=== PATIENT | female | born 1975 | race Caucasian/White ===

== ENCOUNTER 2017-06-28 20:57 | Emergency (ER) | payer OTHER ==
[2017-06-28 21:39] LABS: Bicarbonate 27 mEq/L (21-31); Glucose Level 310 mg/dL (65-120); Potassium 4.2 mEq/L (3.6-5.0); Sodium Level 134 mEq/L (135-145)
[2017-06-28] MEDS ORDERED: NA CHLORIDE 0.9% 1,000 ML ONE (21:39)
[2017-06-28 21:42] LABS: Absolute Lymphocytes (CBC) 6.3 K/uL (0.7-4.9); Absolute Monocytes 0.7 K/uL (0.1-1.3); Absolute Neutrophil 7.7 K/uL (1.8-8.0); Basophils % 0.7 % (0-1.3); Eosinophils % 3.2 % (0-4.4); Hematocrit 43.7 % (36.0-45.0); Lymphocytes % 41.4 % (15.3-44.8); MCH 27.9 pg (27.0-35.0); MCV 83.9 fL (80-100); Monocytes % 4.4 % (3.3-12.3)
[2017-06-28 21:45] LABS: ALT/SGPT 35 IU/L (10-60); AST/SGOT 34 IU/L (10-42); Albumin 4.1 g/dL (3.2-5.5); Alkaline Phosphatase 68 IU/L (42-121); BUN Blood Urea Nitrogen 9 mg/dL (6-20); Bilirubin Direct 0.1 mg/dL (0-0.2); Bilirubin Total 0.5 mg/dL (0.3-1.2); Glomerular Filtration Rate 77 mL/min (=/>90); Protein, Total 7.8 g/dL (6.0-8.3); Protime INR 1.01
[2017-06-28 21:46] LABS: Alcohol Serum/Plasma < 10 mg/dl; Salicylates Level < 4.0 mg/dl (<30)
[2017-06-29 00:56] LABS: Barbiturates NEGATIVE; Benzodiazepines POSITIVE; Cocaine NEGATIVE; METHAMPHETAM NEGATIVE; Opiates POSITIVE; Phencyclidine NEGATIVE; THC Cannibis NEGATIVE
[2017-06-29 01:12] LABS: Urine Blood NEGATIVE (NEG); Urine Glucose TRACE (NEG); Urine Protein NEGATIVE (NEG); Urine Specific Gravity 1.025 (1.005-1.030); Urine pH 5.5 (5.0-7.0)
--- NOTE | 2017-06-29 01:12 | EDPHYS ---
Physician Documentation [facility] Name: Mireya Gonsalez Age: 42 yrs Sex: Female : 1975 Arrival Date: 06/28/2017 Time: 20:59 Bed 3 Private MD: ED Physician Ricky Miles HPI: 06/28 21:15 This 42 yrs old Female presents to ER via EMS with complaints of Overdose. cp 21:15 The patient presents to the emergency department after a known overdose, that was cp intentional. 21:15 Context: Method: the patient has a confirmed or suspected ingestion, approximately 8 cp tablets of tylenol #3 pain medication, Time: 45 minute(s) ago, the OD/poisoning occurred at at home, patient reports she became upset with . Denies taking medication in attempt to kill herself. Also, reports taking 1 tablet of 1mg Xanax. 21:15 Associated signs and symptoms: Pertinent negatives: auditory hallucinations, decreased cp level of consciousness, diaphoresis, shortness of breath, visual hallucinations. Historical: - Allergies: 21:09 No Known Allergies; lp1 - Home Meds: 21:09 levothyroxine 88 mcg tab 1 tab once daily [Active]; metformin 500 mg Oral tab 1 tab 2 lp1 times per day [Active]; gabapentin oral oral [Active]; - PMHx: 21:09 Diabetes - NIDDM; Hypothyroidism; lp1 - PSHx: 21:09 Cholecystectomy; D \T\ C; Hernia repair; Shoulder surgery; lp1 - Immunization history:: Adult Immunizations up to date. - Social history:: Smoking status: Patient/guardian denies using tobacco. ROS: 21:18 Constitutional: Negative for body aches, chills, fever, poor PO intake. cp 21:18 Eyes: Negative for injury, pain, redness, and discharge. cp 21:18 ENT: Negative for drainage from ear(s), ear pain, sore throat, difficulty swallowing, difficulty handling secretions. 21:18 Cardiovascular: Negative for chest pain, edema, palpitations. 21:18 Respiratory: Negative for cough, shortness of breath, wheezing. 21:18 Abdomen/GI: Negative for abdominal pain, nausea, vomiting, and diarrhea, black/tarry stool, rectal bleeding. 21:18 Back: Negative for radiated pain. 21:18 Skin: Negative for cellulitis, rash. 21:18 Neuro: Negative for altered mental status, headache, loss of consciousness, weakness. 21:18 Psych: Positive for depression, Negative for auditory hallucinations, visual hallucinations, suicide gesture, suicidal ideation. 21:18 All other systems are negative. Exam: 21:10 ECG was reviewed by the Attending Physician. cp 21:22 Constitutional: The patient appears in no acute distress, alert, awake, cp non-diaphoretic, non-toxic, well developed, well nourished, obese. 21:22 Head/Face: Normocephalic, atraumatic. Eyes: Pupils equal round and reactive to light, cp extra-ocular motions intact. Lids and lashes normal. Conjunctiva and sclera are non-icteric and not injected. Cornea within normal limits. Periorbital areas with no swelling, redness, or edema. ENT: Nares patent. No nasal discharge, no septal abnormalities noted. Tympanic membranes are normal and external auditory canals are clear. Oropharynx with no redness, swelling, or masses, exudates, or evidence of obstruction, uvula midline. Mucous membranes moist. Neck: Trachea midline, no thyromegaly or masses palpated, and no cervical lymphadenopathy. Supple, full range of motion without nuchal rigidity, or vertebral point tenderness. No Meningismus. Chest/axilla: Normal chest wall appearance and motion. Nontender with no deformity. No lesions are appreciated. 21:22 Cardiovascular: Rate: tachycardic, Rhythm: regular, Pulses: Pulses are 2+ in right radial artery and left radial artery. Edema: is not appreciated, JVD: is not appreciated. 21:22 Respiratory: the patient does not display signs of respiratory distress, Respirations: normal, no use of accessory muscles, no retractions, no splinting, no tachypnea, labored breathing, is not present, Breath sounds: are clear throughout, no decreased breath sounds, no stridor, no wheezing. 21:22 Abdomen/GI: Inspection: obese Bowel sounds: active, all quadrants, Palpation: abdomen is soft and non-tender, in all quadrants, rebound tenderness, is not appreciated, voluntary guarding, is not appreciated, involuntary guarding, is not appreciated. 21:22 Back: pain, is absent, ROM is normal. 21:22 Skin: cellulitis, is not appreciated, no rash present. 21:22 Neuro: Orientation: to person, place \T\ time. Mentation: able to follow commands, sleepy, Cerebellar function: is grossly normal, Motor: moves all fours, strength is normal, Sensation: no obvious gross deficits. Vital Signs: 21:09 BP 117 / 88; Pulse 113; Resp 16; Temp 98.1(O); Pulse Ox 95% on R/A; Weight 115.21 kg; lp1 Height 5 ft. 5 in. (165.10 cm); 22:03 BP 114 / 84; Pulse 90; Resp 12; Pulse Ox 96% on 2 lpm NC; tl2 06/29 00:42 BP 127 / 91; Pulse 80; Resp 13; Pulse Ox 95% on R/A; tl2 06/28 21:09 Body Mass Index 42.27 (115.21 kg, 165.10 cm) lp1 MDM: 06/28 21:02 Patient medically screened. cp 22:00 Differential diagnosis: polypharmacy, over medication, suicide gesture, suicidal cp ideation, depression. 06/29 01:10 Data reviewed: vital signs, nurses notes, lab test result(s), VSS. Repeat 4 hr tylenol cp level returned and lower decreased. Patient evaluated by [facility] and felt to be stable for discharge. Will discharge to home for continued monitoring. 06/28 21:11 Order name: Acetaminophen cp 06/28 21:11 Order name: Basic Metabolic Panel cp 06/28 21:11 Order name: CBC with Diff cp 06/28 21:11 Order name: ETOH Level cp 06/28 21:11 Order name: Hepatic Function cp 06/28 21:11 Order name: PT-INR cp 06/28 21:11 Order name: Ptt, Activated cp 06/28 21:11 Order name: Salicylate cp 06/28 21:11 Order name: Urine Drug Screen cp 06/28 21:40 Order name: Basic Metabolic Panel; Complete Time: 23:21 EDMS 06/29 01:09 Interpretation: Normal except: NA 134; CL 98; GLUC 310; GFR 77. cp 06/28 21:46 Order name: Liver (Hepatic) Function; Complete Time: 23:21 EDMS 06/28 21:46 Order name: Acetaminophen Level; Complete Time: 23:21 EDMS 06/28 21:46 Order name: Alcohol Serum/Plasma; Complete Time: 23:21 EDMS 06/28 21:46 Order name: Salicylates Level; Complete Time: 23:21 EDMS 06/28 21:11 Order name: Urine Test (obtain specimen); Complete Time: 00:33 cp 06/28 21:11 Order name: EKG; Complete Time: 21:13 cp 06/28 21:11 Order name: EKG - Nurse/Tech; Complete Time: 21:17 cp 06/28 21:11 Order name: IV Saline Lock; Complete Time: 21:17 cp 06/28 21:55 Order name: CBC with Automated Diff; Complete Time: 23:21 EDMS 06/28 21:56 Order name: Protime (+INR); Complete Time: 23:21 EDMS 06/28 21:56 Order name: PTT, Activated Partial Thromb; Complete Time: 23:21 EDME 06/29 00:16 Order name: Tylenol Level: repeat 0045 cp 06/29 00:42 Order name: Acetaminophen Level; Complete Time: 01:07 EDME 06/29 00:42 Order name: Urine Dipstick--Ancillary (enter results) em1 06/29 00:42 Order name: Urine --Ancillary (enter results) em1 06/29 00:56 Order name: Urine Drug Screen; Complete Time: 01:07 EDME 06/29 01:07 Interpretation: Normal except: BZO POSITIVE; OPI POSITIVE. cp 06/29 01:12 Order name: Urine --Ancillary EDME 06/29 01:12 Order name: Urine Dipstick-Ancillary EDME 06/28 21:11 Order name: Labs collected and sent; Complete Time: 21:17 cp 06/28 21:11 Order name: Urine Dipstick-Ancillary (obtain specimen); Complete Time: 00:33 cp EC/23 21:10 Rate is 113 beats/min. Rhythm is regular. IA interval is normal. QRS interval is cp normal. QT interval is normal. T waves are Inverted in lead III. T waves are Flattened in leads V4, V5, V6. Interpreted by me. Reviewed by me. Administered Medications: 21:18 CANCELLED (Physician Discretion): Charcoal Suspension 50 grams PO once cp 21:22 Drug: NS 0.9% 1000 ml Route: IV; Rate: 1 bolus; Site: right antecubital; tl2 06/29 01:42 Follow up: IV Status: Completed infusion tl2 Disposition: 06/29/17 01:12 Discharged to Home. Impression: Patient's other noncompliance with medication regimen - Overdose, Diabetes mellitus due to underlying condition with hyperglycemia, Depression. - Condition is Stable. - Discharge Instructions: Depression, Adult, Narcotic Overdose, Blood Glucose Monitoring, Adult. - Medication Reconciliation Form, Thank You Letter, Antibiotic Education, Prescription Opioid Use form. - Follow up: Private Physician; When: 1 - 2 days; Reason: Recheck today's complaints. - Problem is new. - Symptoms have improved. Addendum: 07/02/2017 07:08 Co-signature as Attending Physician, Ricky Miles MD I agree with the assessment and w a plan of care. Signatures: Dispatcher [employer] EDMS Mireya Valadez RN RN lp1 Patrice Field PA PA cp Knox, Taylor, RN RN tl2 Ricky Miles MD MD sc Corrections: (The following items were deleted from the chart) 06/28 21:18 21:15 Charcoal Suspension 50 grams PO once ordered. cp cp
--- NOTE | 2017-06-29 01:12 | ER ---
Nurse's Notes [facility] Name: Mireya Gonsalez Age: 42 yrs Sex: Female : 1975 Arrival Date: 06/28/2017 Time: 20:59 Bed 3 Private MD: Diagnosis: Patient's other noncompliance with medication regimen-Overdose;Diabetes mellitus due to underlying condition with hyperglycemia;Depression Presentation: 06/28 21:05 Presenting complaint: EMS states: Called by , states patient taking tylenol #3 lp1 x7, Xanax x1, about 35 min ago; After having argument with ; Denies attempt to harm self or others; States just wanting to sleep. Transition of care: patient was not received from another setting of care. Onset of symptoms was June 28, 2017 at 20:30. Care prior to arrival: IV initiated. 20 GA, in the right antecubital area, Glucose check: 146. 21:05 Method Of Arrival: EMS: [facility] lp1 21:05 Acuity: ARMIN 2 lp1 Triage Assessment: 21:12 General: Appears in no apparent distress. uncomfortable, Behavior is cooperative, tl2 appropriate for age, drowsy. Pain: Denies pain. Neuro: Level of Consciousness is obeys commands, stuporous, Oriented to person, place, time. Cardiovascular: Denies chest pain. Respiratory: Airway is patent Respiratory effort is even, unlabored, Respiratory pattern is regular, symmetrical. GI: No signs and/or symptoms were reported involving the gastrointestinal system. : No signs and/or symptoms were reported regarding the genitourinary system. Derm: Skin is pink, warm \T\ dry. Historical: - Allergies: 21:09 No Known Allergies; lp1 - Home Meds: 21:09 levothyroxine 88 mcg tab 1 tab once daily [Active]; metformin 500 mg Oral tab 1 tab 2 lp1 times per day [Active]; gabapentin oral oral [Active]; - PMHx: 21:09 Diabetes - NIDDM; Hypothyroidism; lp1 - PSHx: 21:09 Cholecystectomy; D \T\ C; Hernia repair; Shoulder surgery; lp1 - Immunization history:: Adult Immunizations up to date. - Social history:: Smoking status: Patient/guardian denies using tobacco. Screenin:10 Nutritional screening: No deficits noted. Tuberculosis screening: No symptoms or risk lp1 factors identified. 21:12 Abuse screen: Denies threats or abuse. Fall Risk Gait- Impaired (20 pts.). tl2 Assessment: 21:15 General: see triage assessment. Pt denies suicidal ideations, states she just wants to tl2 sleep.. 21:18 General: Mookie Palomino with [facility] contacted at [phone]. 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 it is recommended for a 4 hour post ingestion tylenol level be drawn. airway support recommended as needed. ERP notified of poison center recommendations. . 21:22 Reassessment: Pt O2 saturation dropped to 88% while sleeping, placed on 2 L O\T\ per nc, tl2 O2 increased to 93%. 22:05 Reassessment: Pt is sleeping, VSS. Family at bedside. tl2 06/29 00:42 Reassessment: Patient appears in no apparent distress at this time. Patient and/or tl2 family updated on plan of care and expected duration. Pain level reassessed. Patient is alert, oriented x 3, equal unlabored respirations, skin warm/dry/pink. pt is more awake and alert. Awaiting results of repeat tylenol level. if negative pt will be discharged. 01:38 Reassessment: Patient appears in no apparent distress at this time. Patient and/or tl2 family updated on plan of care and expected duration. Pain level reassessed. Patient is alert, oriented x 3, equal unlabored respirations, skin warm/dry/pink. pt verbalized understanding of discharge instructions, need for follow up with mental health Patient states feeling better. Overdose: 06/28 21:14 Patient took Tylenol #3 x7 and xanax x1. Overdose occurred 30 minutes to 1 hour ago. tl2 Vital Signs: 21:09 BP 117 / 88; Pulse 113; Resp 16; Temp 98.1(O); Pulse Ox 95% on R/A; Weight 115.21 kg; lp1 Height 5 ft. 5 in. (165.10 cm); 22:03 BP 114 / 84; Pulse 90; Resp 12; Pulse Ox 96% on 2 lpm NC; tl2 06/29 00:42 BP 127 / 91; Pulse 80; Resp 13; Pulse Ox 95% on R/A; tl2 06/28 21:09 Body Mass Index 42.27 (115.21 kg, 165.10 cm) lp1 ED Course: 06/28 20:59 Patient arrived in ED. em1 21:00 Safety Checks: Personal items have been removed The door is open or patient has been tl2 placed in a hallway bed/chair. A family member and/or friend is present and encouraged to stay. 21:02 Patrice Field PA is PHCP. cp 21:02 Ricky Miles MD is Attending Physician. cp 21:06 Triage completed. lp1 21:10 Patient has correct armband on for positive identification. monitor technician on. Pulse lp1 ox on. NIBP on. 21:10 Maintain EMS IV. Dressing intact. Good blood return noted. Site clean \T\ dry. Gauge \T\ lp 1 site: 20g R AC. 21:12 Arm band placed on right wrist. tl2 21:15 Safety Checks: Personal items have been removed The door is open or patient has been tl2 placed in a hallway bed/chair. A family member and/or friend is present and encouraged to stay. 21:21 Hayde Todd, ELIOT is Primary Nurse. tl2 21:30 Safety Checks: Personal items have been removed The door is open or patient has been tl2 placed in a hallway bed/chair. A family member and/or friend is present and encouraged to stay. 21:45 Safety Checks: Personal items have been removed The door is open or patient has been tl2 placed in a hallway bed/chair. A family member and/or friend is present and encouraged to stay. 22:00 Safety Checks: Personal items have been removed The door is open or patient has been tl2 placed in a hallway bed/chair. A family member and/or friend is present and encouraged to stay. 22:15 Safety Checks: Personal items have been removed The door is open or patient has been ak1 placed in a hallway bed/chair. A family member and/or friend is present and encouraged to stay. 22:30 Safety Checks: Personal items have been removed The door is open or patient has been ak1 placed in a hallway bed/chair. A family member and/or friend is present and encouraged to stay. 22:45 Safety Checks: Personal items have been removed The door is open or patient has been ak1 placed in a hallway bed/chair. A family member and/or friend is present and encouraged to stay. 23:00 Safety Checks: Personal items have been removed The door is open or patient has been ak1 placed in a hallway bed/chair. A family member and/or friend is present and encouraged to stay. 23:15 Safety Checks: Personal items have been removed The door is open or patient has been ak1 placed in a hallway bed/chair. A family member and/or friend is present and encouraged to stay. 23:30 Safety Checks: Personal items have been removed The door is open or patient has been ak1 placed in a hallway bed/chair. A family member and/or friend is present and encouraged to stay. 23:44 Safety Checks: Personal items have been removed The door is open or patient has been ak1 placed in a hallway bed/chair. A family member and/or friend is present and encouraged to stay. 06/29 00:00 Safety Checks: Personal items have been removed The door is open or patient has been tl2 placed in a hallway bed/chair. A family member and/or friend is present and encouraged to stay. 00:15 Safety Checks: Personal items have been removed The door is open or patient has been tl2 placed in a hallway bed/chair. A family member and/or friend is present and encouraged to stay. 00:30 Safety Checks: Personal items have been removed The door is open or patient has been tl2 placed in a hallway bed/chair. A family member and/or friend is present and encouraged to stay. 00:39 Tylenol Level: repeat 0045 Sent. tl2 00:44 Safety Checks: Personal items have been removed The door is open or patient has been tl2 placed in a hallway bed/chair. A family member and/or friend is present and encouraged to stay. 01:00 Safety Checks: Personal items have been removed The door is open or patient has been tl2 placed in a hallway bed/chair. A family member and/or friend is present and encouraged to stay. 01:15 Safety Checks: Personal items have been removed The door is open or patient has been tl2 placed in a hallway bed/chair. A family member and/or friend is present and encouraged to stay. 01:30 Safety Checks: Personal items have been removed The door is open or patient has been tl2 placed in a hallway bed/chair. A family member and/or friend is present and encouraged to stay. 01:38 No provider procedures requiring assistance completed. IV discontinued, intact, tl2 bleeding controlled, No redness/swelling at site. Pressure dressing applied. Administered Medications: 06/28 21:18 CANCELLED (Physician Discretion): Charcoal Suspension 50 grams PO once cp 21:22 Drug: NS 0.9% 1000 ml Route: IV; Rate: 1 bolus; Site: right antecubital; tl2 06/29 01:42 Follow up: IV Status: Completed infusion tl2 Outcome: 01:12 Discharge ordered by MD. cp 01:30 Discharged to home via wheelchair, with family. tl2 01:30 Condition: stable 01:30 Discharge instructions given to patient, family, Instructed on discharge instructions, follow up and referral plans. Demonstrated understanding of instructions, follow-up care. 01:42 Patient left the ED. tl2 Signatures: [place] em1 Mireya Valadez RN RN lp1 Christy Mackay RN RN ak1 Patrice Field PA PA Hayde Dupree, ELIOT RN tl2 Corrections: (The following items were deleted from the chart) 06/28 21:09 21:05 Care prior to arrival: None. lp1 lp1
[2017-06-29 01:46] VITALS: TEMP 98.1
[2017-06-29 01:48] VITALS: BP 127/91; O2SAT 95
--- NOTE | 2017-06-29 07:22 | EKG ---
Test Date: 2017-06-28 Test Time: 21:05:29 Gang Sawyer: LANDEN MEASUREMENT RESULTS: Intervals: Rate: 113 VA: 134 QRSD: 78 QT: 334 QTc: 458 [place]ell: P: 68 VA: 134 QRS: 51 T: -11 INTERPRETIVE STATEMENTS: Sinus tachycardia Possible Left atrial enlargement Nonspecific T wave abnormality Abnormal ECG Compared to ECG 03/16/2017 08:11:21 T-wave abnormality now present Sinus rhythm no longer present Electronically Signed On 06-29-17 07:21:40 CDT by Flaco Johnson
== END 2017-06-29 01:42 | disposition home or self-care (01) ==
LOC: ER 20:57
DX: T40.2X1A Poisoning by other opioids, accidental (unintentional), initial encounter (principal); Y92.009 Unspecified place in unspecified non-institutional (private) residence as the place of occurrence of the external cause; Z91.14 Patient's other noncompliance with medication regimen; E08.65 Diabetes mellitus due to underlying condition with hyperglycemia; E03.9 Hypothyroidism, unspecified
CPT/HCPCS: 36415; 80048; 80076; 80307; 80320; 80329; 81003; 81025; 85025; 85610; 85730; 93005; 96360; 96361; 99284; J7030

== ENCOUNTER 2017-10-01 06:36 | Day surgery (SDC) | payer OTHER ==
[2017-10-01 06:54] LABS: Specific Gravity >= 1.030 (1.005-1.030)
[2017-10-01] MEDS ORDERED: NA CHLORIDE 0.9% 1,000 ML ONE (06:57)
[2017-10-01] MEDS ORDERED: LIDOCAINE 1% MPF 5 ML VIAL ONE (08:06)
[2017-10-01] MEDS ORDERED: PROPOFOL 200 MG/20 ML VIAL IV ONE ×2 (08:06)
--- NOTE | 2017-10-01 08:33 | ENDO RPT ---
[address], [address] COLONOSCOPY PROCEDURE REPORT EXAM DATE: 10/01/2017 PATIENT NAME: Mireya Gonsalez MR #: [id number] BIRTHDATE: 1975 ATTENDING: Ricky Sorto Dr STATUS: outpatient DEER FARM WORKER: Joanna Alonzo RN and Kandice Negro INDICATIONS: The patient is a 42 yr old Female here for a colonoscopy due to family history of colon polyps - mother PROCEDURE PERFORMED: Screening Colonoscopy MEDICATIONS: Per Anesthesia. ESTIMATED BLOOD LOSS: None CONSENT: The patient understands the risks and benefits of the procedure and understands that these risks include, but are not limited to: sedation, allergic reaction, infection, perforation and/or bleeding. Alternative means of evaluation and treatment include, among others: physical exam, x-rays, and/or surgical intervention. The patient elects to proceed with this endoscopic procedure. DESCRIPTION OF PROCEDURE: During intra-op preparation period all mechanical medical equipment was checked for proper function. Hand hygiene and appropriate measures for infection prevention was taken. Procedure, possible complications, alternatives including, but not limited to possibility of bleeding, perforation, tear, infection, sepsis, need for surgery, need for blood transfusion, were explained to the patient. After the risks, benefits and alternatives of the procedure were thoroughly explained, Informed consent was verified, confirmed and timeout was successfully executed by the treatment team. The patient was placed in the left lateral position. A digital rectal exam was performed and revealed several skin tags. After appropriate level of anesthesia, the scope was passed. The EC-[id number] ([id number]) endoscope was introduced through the anus and advanced to the cecum, which was identified by both the appendix and ileocecal valve. The quality of the prep was good. The instrument was then slowly withdrawn as the colon was fully examined. Scope withdrawal time was 7 minutes. COLON FINDINGS: Moderate sized internal hemorrhoids were found. Retroflexed views revealed medium hemorrhoids. The scope was then completely withdrawn from the patient and the procedure terminated. ADVERSE EVENTS: There were no complications. IMPRESSIONS: 1. Moderate sized internal hemorrhoids 2. Intubation to cecum RECOMMENDATIONS: fiber rich diet RECALL: Colonoscopy at 51 [address] eSigned: Ricky Sorto Dr 10/01/2017 8:32 AM cc: CPT CODES: ICD9 CODES: 455.9 Residual hemorrhoidal skin tags PATIENT NAME: Mireya Gonsalez MR#: [id number]
[2017-10-01 08:38] VITALS: TEMP 98.4
[2017-10-01 08:50] VITALS: BP 110/85; O2SAT 96
== END 2017-10-01 08:53 | disposition home or self-care (01) ==
LOC: ENDO 06:36
PROVIDERS: ATTEND Internal Medicine Gastroenterology
PROC: 0DJD8ZZ Inspection of Lower Intestinal Tract, Via Natural or Artificial Opening Endoscopic (ICD-10-PCS; principal; 2017-10-01 08:45)
DX: Z12.11 Encounter for screening for malignant neoplasm of colon (principal); M19.90 Unspecified osteoarthritis, unspecified site; E11.9 Type 2 diabetes mellitus without complications; Z79.84 Long term (current) use of oral hypoglycemic drugs; F17.210 Nicotine dependence, cigarettes, uncomplicated; Z83.71 Family history of colonic polyps; R10.13 Epigastric pain; E66.9 Obesity, unspecified; L91.8 Other hypertrophic disorders of the skin; K64.8 Other hemorrhoids
CPT/HCPCS: 81025; 82962; J7030

== ENCOUNTER 2018-01-06 20:36 | Emergency (ER) | payer OTHER ==
[2018-01-06] MEDS ORDERED: HYDROCODONE/APAP 10/325 TAB ONE (22:37)
[2018-01-06] MEDS ORDERED: CYCLOBENZAPRINE 10 MG TAB ONE (22:47)
--- NOTE | 2018-01-06 22:57 | ER ---
Nurse's Notes [facility] Name: Mireya Gonsalez Age: 42 yrs Sex: Female : 1975 Arrival Date: 01/06/2018 Time: 20:40 Bed 13 Private MD: Diagnosis: Strain of muscle, fascia and tendon at neck level Presentation: 01/06 20:51 Presenting complaint: Patient states: "I woke up this morning and I can't move my neck. aj1 I have spinal stenosis. I had an injection 2 years ago, but now I'm in the same situation again" Denies fever. Transition of care: patient was not received from another setting of care. Onset of symptoms was January 06, 2018. Risk Assessment: Do you want to hurt yourself or someone else? Patient reports no desire to harm self or others. Initial Sepsis Screen: Does the patient meet any 2 criteria? HR > 90 bpm. No. Patient's initial sepsis screen is negative. Does the patient have a suspected source of infection? No. Patient's initial sepsis screen is negative. Care prior to arrival: None. 20:51 Method Of Arrival: Ambulatory [facility] 20:51 Acuity: ARMIN 4 aj1 Triage Assessment: 20:55 General: Appears in no apparent distress. uncomfortable, Behavior is calm, cooperative, aj1 appropriate for age. Pain: Complains of pain in neck Pain currently is 8 out of 10 on a pain scale. Neuro: Level of Consciousness is awake, alert, obeys commands, Moves all extremities. Full function Gait is steady, Speech is normal. Cardiovascular: Patient's skin is warm and dry. Respiratory: Airway is patent Respiratory effort is even, unlabored, Respiratory pattern is regular, symmetrical. 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 - Social history:: Smoking status: Patient uses tobacco products, smokes one pack cigarettes per day. - Ebola Screening: : Patient denies travel to an Ebola-affected area in the 21 days before illness onset. Screenin:30 Abuse screen: Denies threats or abuse. Denies injuries from another. Nutritional aa1 screening: No deficits noted. Tuberculosis screening: No symptoms or risk factors identified. Fall Risk None identified. Assessment: 21:30 General: Appears in no apparent distress. comfortable, Behavior is calm, cooperative, aa1 appropriate for age. Pain: Complains of pain in left side of neck Quality of pain is described as sharp, shooting. Neuro: Level of Consciousness is awake, alert, obeys commands, Oriented to person, place, time, situation, Moves all extremities. Full function Gait is steady, Speech is normal, Facial symmetry appears normal. Respiratory: Airway is patent Respiratory effort is even, unlabored, Respiratory pattern is regular, symmetrical. GI: No signs and/or symptoms were reported involving the gastrointestinal system. : No signs and/or symptoms were reported regarding the genitourinary system. EENT: No signs and/or symptoms were reported regarding the EENT system. Derm: Skin is intact, is healthy with good turgor, Skin is pink, warm \\T\\ dry. Musculoskeletal: Circulation, motion, and sensation intact. Capillary refill < 3 seconds, Range of motion: intact in all extremities. 22:10 Reassessment: Patient appears in no apparent distress at this time. Patient and/or aa1 family updated on plan of care and expected duration. Pain level reassessed. Patient is alert, oriented x 3, equal unlabored respirations, skin warm/dry/pink. Pt awaiting initial assessment from provider. 23:11 Reassessment: Patient appears in no apparent distress at this time. Patient is alert, aa1 oriented x 3, equal unlabored respirations, skin warm/dry/pink. Discussed d/c \\T\\ f/u instructions with pt; denies questions or concerns at this time Patient states feeling better. Vital Signs: 20:55 BP 116 / 86; Pulse 101; Resp 18; Temp 97.4(TE); Pulse Ox 95% on R/A; Weight 115.21 kg aj1 (R); Height 5 ft. 5 in. (165.10 cm) (R); Pain 8/10; 22:35 BP 133 / 81; Pulse 102; Resp 18; Pulse Ox 96% on R/A; aa1 20:55 Body Mass Index 42.27 (115.21 kg, 165.10 cm) aj1 ED Course: 20:40 Patient arrived in ED. ag3 20:53 Triage completed. aj1 20:55 Arm band placed on Patient placed in waiting room, Patient notified of wait time. aj1 21:30 Patient has correct armband on for positive identification. Bed in low position. Call aa1 light in reach. Pulse ox on. NIBP on. 21:45 Catalino Zazueta NP is PHCP. pm1 21:46 Deion Call MD is Attending Physician. pm1 22:34 Theresa Martinez, RN is Primary Nurse. aa1 23:11 No provider procedures requiring assistance completed. Patient did not have IV access aa1 during this emergency room visit. Administered Medications: 22:34 Drug: [place] 10 mg-325 mg 1 tabs Route: PO; aa1 23:11 Follow up: Response: No adverse reaction; Pain is decreased aa1 22:36 Not Given (Patient Refused): TORadol 60 mg IM once aa1 22:43 Drug: Flexeril 10 mg Route: PO; aa1 23:11 Follow up: Response: No adverse reaction; Pain is decreased aa1 Outcome: 22:56 Discharge ordered by MD. pm1 23:11 Discharged to home ambulatory, with significant other. aa1 23:11 Condition: good 23:11 Discharge instructions given to patient, Instructed on discharge instructions, follow up and referral plans. medication usage, Demonstrated understanding of instructions, follow-up care, medications, Prescriptions given X 2. 23:12 Patient left the ED. aa1 Signatures: Brittany Mullins RN RN aj1 Theresa Martinez RN RN aa1 Catalino Zazueta NP [employer] pm1 Annabel Salcedo ag3
--- NOTE | 2018-01-06 22:57 | EDPHYS ---
Physician Documentation [facility] Name: Mireya Gonsalez Age: 42 yrs Sex: Female : 1975 Arrival Date: 01/06/2018 Time: 20:40 Bed 13 Private MD: ED Physician Deion Call HPI: 01/06 22:48 This 42 yrs old Female presents to ER via Ambulatory with complaints of Neck pm1 Pain. 22:48 The patient or guardian complains of pain. The symptoms are located on the left side of pm1 neck. Onset: The symptoms/episode began/occurred this morning. Context: The problem was sustained at home, The neck injury/problem resulted from Unknown, possibly slept wrong on it. Has a history of chronic neck pain that has required steroid injections to neck. Associated signs and symptoms: Pertinent negatives: fever, nausea, numbness, tingling, vomiting, weakness. The pain does not radiate. Modifying factors: The symptoms are alleviated by remaining still, the symptoms are aggravated by movement. Severity of symptoms: in the emergency department the symptoms are unchanged. The patient has not recently seen a physician. 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 - Social history:: Smoking status: Patient uses tobacco products, smokes one pack cigarettes per day. - Ebola Screening: : Patient denies travel to an Ebola-affected area in the 21 days before illness onset. ROS: 22:48 Constitutional: Negative for fever, chills, and weight loss, Eyes: Negative for injury, pm1 pain, redness, and discharge, ENT: Negative for injury, pain, and discharge. 22:48 Cardiovascular: Negative for chest pain, palpitations, and edema, Respiratory: Negative for shortness of breath, cough, wheezing, and pleuritic chest pain, Abdomen/GI: Negative for abdominal pain, nausea, vomiting, diarrhea, and constipation, Back: Negative for injury and pain, MS/Extremity: Negative for injury and deformity, Skin: Negative for injury, rash, and discoloration, Neuro: Negative for headache, weakness, numbness, tingling, and seizure. 22:48 Neck: Positive for pain with movement, Negative for bony tenderness. Exam: 22:48 Constitutional: This is a well developed, well nourished patient who is awake, alert, pm1 and in no acute distress. Head/Face: Normocephalic, atraumatic. Eyes: Pupils equal round and reactive to light, extra-ocular motions intact. Lids and lashes normal. Conjunctiva and sclera are non-icteric and not injected. Cornea within normal limits. Periorbital areas with no swelling, redness, or edema. ENT: Nares patent. No nasal discharge, no septal abnormalities noted. Tympanic membranes are normal and external auditory canals are clear. Oropharynx with no redness, swelling, or masses, exudates, or evidence of obstruction, uvula midline. Mucous membranes moist. 22:48 Chest/axilla: Normal chest wall appearance and motion. Nontender with no deformity. No lesions are appreciated. Cardiovascular: Regular rate and rhythm with a normal S1 and S2. No gallops, murmurs, or rubs. Normal PMI, no JVD. No pulse deficits. Respiratory: Lungs have equal breath sounds bilaterally, clear to auscultation and percussion. No rales, rhonchi or wheezes noted. No increased work of breathing, no retractions or nasal flaring. Abdomen/GI: Soft, non-tender, with normal bowel sounds. No distension or tympany. No guarding or rebound. No evidence of tenderness throughout. Back: No spinal tenderness. No costovertebral tenderness. Full range of motion. Skin: Warm, dry with normal turgor. Normal color with no rashes, no lesions, and no evidence of cellulitis. MS/ Extremity: Pulses equal, no cyanosis. Neurovascular intact. Full, normal range of motion. 22:48 Neck: External neck: mass, is not appreciated, rash, is not appreciated, swelling, is not appreciated, tenderness, left sternocleidomastoid muscle tenderness and spasm with palpation that reproduces patient pain symptoms, C-spine: vertebral tenderness, is not appreciated, Trachea: is midline with no obvious abnormalities, no acute changes, Lymph nodes: no appreciated lymphadenopathy. 22:48 Neuro: Orientation: is normal, Motor: is normal, Sensation: is normal, no obvious gross deficits, Gait: is steady, at a normal pace, without difficulty. Vital Signs: 20:55 BP 116 / 86; Pulse 101; Resp 18; Temp 97.4(TE); Pulse Ox 95% on R/A; Weight 115.21 kg aj1 (R); Height 5 ft. 5 in. (165.10 cm) (R); Pain 8/10; 22:35 BP 133 / 81; Pulse 102; Resp 18; Pulse Ox 96% on R/A; aa1 20:55 Body Mass Index 42.27 (115.21 kg, 165.10 cm) aj1 MDM: 22:18 Patient medically screened. pm1 22:53 Data reviewed: vital signs. Data interpreted: Pulse oximetry: on room air is 96 %. pm1 Interpretation: normal. Counseling: I had a detailed discussion with the patient and/or guardian regarding: the historical points, exam findings, and any diagnostic results supporting the discharge/admit diagnosis, the need for outpatient follow up, to return to the emergency department if symptoms worsen or persist or if there are any questions or concerns that arise at home. 22:53 ED course: patient reports that she has Tylenol #4 at home for pain. pm1 Administered Medications: 22:34 Drug: [place] 10 mg-325 mg 1 tabs Route: PO; aa1 23:11 Follow up: Response: No adverse reaction; Pain is decreased aa1 22:36 Not Given (Patient Refused): TORadol 60 mg IM once aa1 22:43 Drug: Flexeril 10 mg Route: PO; aa1 23:11 Follow up: Response: No adverse reaction; Pain is decreased aa1 Disposition: 23:13 Co-signature as Attending Physician, Deion Call MD. pkl Disposition: 01/06/18 22:56 Discharged to Home. Impression: Strain of muscle, fascia and tendon at neck level. - Condition is Stable. - Discharge Instructions: Muscle Strain. - Prescriptions for Cyclobenzaprine 10 mg Oral Tablet - take 1 tablet by ORAL route every 8 hours As needed; 30 tablet. Naprosyn 500 mg Oral Tablet - take 1 tablet by ORAL route 2 times per day take with food; 30 tablet. - Work release form, Medication Reconciliation Form, Thank You Letter, Prescription Opioid Use form. - Follow up: Emergency Department; When: As needed; Reason: Worsening of condition. Follow up: Private Physician; When: 2 - 3 days; Reason: Recheck today's complaints, Continuance of care, Re-evaluation by your physician. - Problem is new. - Symptoms have improved. Signatures: Brittany Mullins RN RN aj1 Theresa Martinez RN RN aa1 Deion Call MD MD pkl Catalino Zazueta, [employer]UT[employer] ENGINEER pm1 Corrections: (The following items were deleted from the chart) 23:12 22:56 01/06/2018 22:56 Discharged to Home. Impression: Strain of muscle, fascia and aa1 tendon at neck level. Condition is Stable. Forms are Medication Reconciliation Form, Thank You Letter, Antibiotic Education, Prescription Opioid Use. Follow up: Emergency Department; When: As needed; Reason: Worsening of condition. Follow up: Private Physician; When: 2 - 3 days; Reason: Recheck today's complaints, Continuance of care, Re-evaluation by your physician. Problem is new. Symptoms have improved. pm1
[2018-01-07 01:24] VITALS: TEMP 97.4
[2018-01-07 01:26] VITALS: BP 133/81; O2SAT 96
== END 2018-01-06 23:12 | disposition home or self-care (01) ==
LOC: ER 20:36
DX: S16.1XXA Strain of muscle, fascia and tendon at neck level, initial encounter (principal); X58.XXXA Exposure to other specified factors, initial encounter; Y93.9 Activity, unspecified; Y92.009 Unspecified place in unspecified non-institutional (private) residence as the place of occurrence of the external cause; Z79.4 Long term (current) use of insulin; I10 Essential (primary) hypertension; E11.9 Type 2 diabetes mellitus without complications; F17.210 Nicotine dependence, cigarettes, uncomplicated
CPT/HCPCS: 99283

== ENCOUNTER 2018-07-07 07:39 | Emergency (ER) | payer OTHER ==
--- NOTE | 2018-07-07 08:16 | ER ---
Nurse's Notes [facility] Name: Mireya Gonsalez Age: 43 yrs Sex: Female : 1975 Arrival Date: 07/07/2018 Time: 07:44 Bed 6 Private MD: Ricky Manley E Diagnosis: Cough Presentation: 07/07 07:52 Presenting complaint: Patient states: dry, hacking, painful cough that began 2 days ss ago. Denies fever. Transition of care: patient was not received from another setting of care. Resp Distress? No respiratory distress is noted at this time. Onset of symptoms was July 05, 2018. Risk Assessment: Do you want to hurt yourself or someone else? Patient reports no desire to harm self or others. Initial Sepsis Screen: Does the patient meet any 2 criteria? HR > 90 bpm. Does the patient have a suspected source of infection? No. Patient's initial sepsis screen is negative. Care prior to arrival: None. 07:52 Method Of Arrival: Ambulatory ss 07:52 Acuity: ARMIN 4 ss Historical: - Allergies: 07:54 No Known Allergies; ss - PMHx: 07:54 Diabetes - NIDDM; Hypothyroidism; chronic back pain; SVT; ss - PSHx: 07:54 Cholecystectomy; Hernia repair; incision and drainage (R axilla); L shoulder repair; ss - Immunization history:: Adult Immunizations up to date. - Social history:: Smoking status: Patient uses tobacco products, smokes one pack cigarettes per day. - Ebola Screening: : Patient denies exposure to infectious person Patient denies travel to an Ebola-affected area in the 21 days before illness onset. Assessment: 08:16 Reassessment: Pt stated "I am going to leave, take some cough medicine at home." CORPORATE EVENTS DIRECTOR ian Yu notified. Vital Signs: 07:54 BP 116 / 88; Pulse 106; Resp 17; Temp 98.0(O); Pulse Ox 98% on R/A; Weight 115.21 kg; ss Height 5 ft. 5 in. (165.10 cm); Pain 3/10; 07:54 Body Mass Index 42.27 (115.21 kg, 165.10 cm) ss ED Course: 07:44 Patient arrived in ED. mr 07:45 Ricky Manley MD is Private Physician. mr 07:45 Aimee Chavis [facility]C [facility]. kb 07:45 Patrice Birch MD is Attending Physician. kb 07:53 Triage completed. ss 07:54 Arm band placed on right wrist. ss 08:15 Ricky Manley MD is Referral Physician. kb Administered Medications: No medications were administered Outcome: 08:17 AMA AMA form signed hb 08:17 Patient left the ED. hb Signatures: Aimee Chavis FNP-C FNP-Shaina Sesay Georgiana Gould, RN RN Gabriella Esparza RN RN hb
--- NOTE | 2018-07-07 08:16 | EDPHYS ---
Physician Documentation [facility] Name: Mireya Gonsalez Age: 43 yrs Sex: Female : 1975 Arrival Date: 07/07/2018 Time: 07:44 Bed 6 Private MD: Ricky Manley E ED Physician Patrice Birch HPI: 07/07 08:04 This 43 yrs old Female presents to ER via Ambulatory with complaints of kb Cough, Congestion, Headache. 08:04 The patient or guardian reports cough, that is intermittent, described as moderate, kb with no sputum, flu symptoms, myalgias. Onset: The symptoms/episode began/occurred 2 day(s) ago. Severity of symptoms: At their worst the symptoms were moderate, in the emergency department the symptoms are unchanged. Modifying factors: The symptoms are alleviated by nothing, the symptoms are aggravated by nothing. Associated signs and symptoms: Pertinent positives: chest pain, with cough, Pertinent negatives: diarrhea, ear ache, fever, nausea, rhinorrhea, sore throat, vomiting. The patient has experienced similar episodes in the past, a few times. The patient has not recently seen a physician. Pt reports she has had a cough for 2 days and nothing has helped get rid of it. Denies sputum and fever. Reports she now has pain with cough. Requests a chest x-ray.. Historical: - Allergies: 07:54 No Known Allergies; ss - PMHx: 07:54 Diabetes - NIDDM; Hypothyroidism; chronic back pain; SVT; ss - PSHx: 07:54 Cholecystectomy; Hernia repair; incision and drainage (R axilla); L shoulder repair; ss - Immunization history:: Adult Immunizations up to date. - Social history:: Smoking status: Patient uses tobacco products, smokes one pack cigarettes per day. - Ebola Screening: : Patient denies exposure to infectious person Patient denies travel to an Ebola-affected area in the 21 days before illness onset. ROS: 08:04 Constitutional: Negative for fever, chills, and weight loss, ENT: Negative for injury, kb pain, and discharge, Neck: Negative for injury, pain, and swelling, Abdomen/GI: Negative for abdominal pain, nausea, vomiting, diarrhea, and constipation, Back: Negative for injury and pain, MS/Extremity: Negative for injury and deformity, Skin: Negative for injury, rash, and discoloration, Neuro: Negative for headache, weakness, numbness, tingling, and seizure. 08:04 Cardiovascular: Positive for chest pain, with cough, Negative for edema, orthopnea, palpitations, paroxysmal nocturnal dyspnea. 08:04 Respiratory: Positive for cough, Negative for dyspnea on exertion, hemoptysis, orthopnea, pleurisy, sputum production, wheezing. Exam: 08:04 Constitutional: This is a well developed, well nourished patient who is awake, alert, kb and in no acute distress. Head/Face: Normocephalic, atraumatic. ENT: Nares patent. No nasal discharge, no septal abnormalities noted. Tympanic membranes are normal and external auditory canals are clear. Oropharynx with no redness, swelling, or masses, exudates, or evidence of obstruction, uvula midline. Mucous membranes moist. Neck: Trachea midline, no thyromegaly or masses palpated, and no cervical lymphadenopathy. Supple, full range of motion without nuchal rigidity, or vertebral point tenderness. No Meningismus. Chest/axilla: Normal chest wall appearance and motion. Nontender with no deformity. No lesions are appreciated. Cardiovascular: Regular rate and rhythm with a normal S1 and S2. No gallops, murmurs, or rubs. Normal PMI, no JVD. No pulse deficits. Respiratory: Lungs have equal breath sounds bilaterally, clear to auscultation and percussion. No rales, rhonchi or wheezes noted. No increased work of breathing, no retractions or nasal flaring. Abdomen/GI: Soft, non-tender, with normal bowel sounds. No distension or tympany. No guarding or rebound. No evidence of tenderness throughout. Skin: Warm, dry with normal turgor. Normal color with no rashes, no lesions, and no evidence of cellulitis. MS/ Extremity: Pulses equal, no cyanosis. Neurovascular intact. Full, normal range of motion. Neuro: Awake and alert, GCS 15, oriented to person, place, time, and situation. Cranial nerves II-XII grossly intact. Motor strength 5/5 in all extremities. Sensory grossly intact. Cerebellar exam normal. Normal gait. Vital Signs: 07:54 BP 116 / 88; Pulse 106; Resp 17; Temp 98.0(O); Pulse Ox 98% on R/A; Weight 115.21 kg; ss Height 5 ft. 5 in. (165.10 cm); Pain 3/10; 07:54 Body Mass Index 42.27 (115.21 kg, 165.10 cm) ss MDM: 07:51 Patient medically screened. kb 08:07 Data reviewed: vital signs, nurses notes. Data interpreted: Pulse oximetry: on room air kb is 98 %. Interpretation: normal. 08:14 Counseling: I had a detailed discussion with the patient and/or guardian regarding: the kb historical points, exam findings, and any diagnostic results supporting the discharge/admit diagnosis, the need for outpatient follow up, a family practitioner, to return to the emergency department if symptoms worsen or persist or if there are any questions or concerns that arise at home. ED course: Pt decided she does not want to stay. Would rather go home and take cough medication. . Administered Medications: No medications were administered Disposition: 11:18 Co-signature as Attending Physician, Patrice Birch MD I agree with the assessment and rupali plan of care. Disposition: 07/07/18 08:16 Patient has left against medical advice. Impression: Cough. - Patients states they are going to Home. - Condition is Stable. Follow up: Emergency Department; When: As needed; Reason: Worsening of condition. Follow up: Ricky Manley MD; When: 2 - 3 days; Reason: Recheck today's complaints, Continuance of care, Re-evaluation by your physician. - Problem is new. - Symptoms are unchanged. Signatures: Dispatcher [employer] [facility] Aimee Chavis, REEL CUTTER-C REEL CUTTER-Ckb Patrice Birch MD MD cha Smirch, Shelby, RN RN Gabriella Esparza RN RN Corrections: (The following items were deleted from the chart) 08:17 08:16 07/07/2018 08:16 Patients has left against medical advice. Impression: Cough. hb Patient states they are going to Home. Condition is Stable. Follow up: Emergency Department; When: As needed; Reason: Worsening of condition. Follow up: Ricky Manley; When: 2 - 3 days; Reason: Recheck today's complaints, Continuance of care, Re-evaluation by your physician. Problem is new. Symptoms are unchanged. kb
[2018-07-07 08:24] VITALS: BP 116/88; TEMP 98; O2SAT 98
== END 2018-07-07 08:17 | disposition left against medical advice (07) ==
LOC: ER 07:39
DX: R05 Cough (principal); E11.9 Type 2 diabetes mellitus without complications; F17.210 Nicotine dependence, cigarettes, uncomplicated; Z53.29 Procedure and treatment not carried out because of patient's decision for other reasons
CPT/HCPCS: 99281

== ENCOUNTER 2018-09-21 06:00 | Emergency (ER) | payer OTHER ==
[2018-09-21 06:36] LABS: Absolute Lymphocytes (CBC) 4.7 K/uL (0.7-4.9); Basophils % 1.3 % (0-1.3); Eosinophils % 3.1 % (0-4.4); Hematocrit 40.8 % (36.0-45.0); Lymphocytes % 42.5 % (15.3-44.8); MPV 8.8 fL (7.6-11.3); Monocytes % 5.5 % (3.3-12.3); RBC Red Blood Cell Count 4.88 M/uL (3.86-4.86)
[2018-09-21] MEDS ORDERED: NA CHLORIDE 0.9% 1,000 ML ONE (06:42)
[2018-09-21] MEDS ORDERED: METOPROLOL TAR 25 MG TAB ONE (06:42)
[2018-09-21 07:00] LABS: Magnesium 2.2 mg/dL (1.8-2.4); Potassium 3.9 mmol/L (3.5-5.1)
--- NOTE | 2018-09-21 07:30 | EDPHYS ---
Physician Documentation [facility] Name: Mireya Gonsalez Age: 43 yrs Sex: Female : 1975 Arrival Date: 09/21/2018 Time: 06:08 Bed 18 Private MD: ED Physician Patrice Birch HPI: 09/21 06:48 This 43 yrs old Female presents to ER via EMS with complaints of palpitations.jr8 06:48 The patient presents with a history of heart racing. Context: The symptoms occur at jr8 rest. Onset: The symptoms/episode began/occurred acutely, today. Duration: The patient or guardian reports a single episode, that is now resolved. Modifying factors: The symptoms are aggravated by nothing. Associated signs and symptoms: Pertinent positives: SOB. Severity of symptoms: At their worst the symptoms were moderate in the emergency department the symptoms have resolved. The patient has experienced a previous episode. The patient has not recently seen a physician. EMS called out to patient who was having palpitations and SOB on scene. Patient found to be in SVT at a rate of 210. Was given Adenosine with conversion of scene. Now in sinus tachycardia. Patient stated that she feels much better. Stated that she has had this once before and has been worked up by cardiology and recently completed Holter monitor. Stated that she was suppose to be on 25 mg of Metoprolol and recently had it adjusted to 25 mg BID. Stated that she initially had been taking the singe dosage once a day but has since stopped taking her medications like she is suppose too several months ago. 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 - Social history:: Smoking status: Patient uses tobacco products, smokes one pack cigarettes per day. - Ebola Screening: : No symptoms or risks identified at this time. ROS: 06:48 Constitutional: Negative for fever, chills, and weight loss. jr8 06:48 Cardiovascular: Positive for palpitations, Negative for chest pain, edema, orthopnea, paroxysmal nocturnal dyspnea. 06:48 Respiratory: Positive for shortness of breath, Negative for cough, dyspnea on exertion, sputum production, wheezing. 06:48 All other systems are negative. Exam: 06:48 Eyes: Pupils equal round and reactive to light, extra-ocular motions intact. Lids and jr8 lashes normal. Conjunctiva and sclera are non-icteric and not injected. Cornea within normal limits. Periorbital areas with no swelling, redness, or edema. ENT: Nares patent. No nasal discharge, no septal abnormalities noted. Tympanic membranes are normal and external auditory canals are clear. Oropharynx with no redness, swelling, or masses, exudates, or evidence of obstruction, uvula midline. Mucous membranes moist. Neck: Trachea midline, no thyromegaly or masses palpated, and no cervical lymphadenopathy. Supple, full range of motion without nuchal rigidity, or vertebral point tenderness. No Meningismus. Respiratory: Lungs have equal breath sounds bilaterally, clear to auscultation and percussion. No rales, rhonchi or wheezes noted. No increased work of breathing, no retractions or nasal flaring. Abdomen/GI: Soft, non-tender, with normal bowel sounds. No distension or tympany. No guarding or rebound. No evidence of tenderness throughout. Back: No spinal tenderness. No costovertebral tenderness. Full range of motion. Skin: Warm, dry with normal turgor. Normal color with no rashes, no lesions, and no evidence of cellulitis. MS/ Extremity: Pulses equal, no cyanosis. Neurovascular intact. Full, normal range of motion. Neuro: Awake and alert, GCS 15, oriented to person, place, time, and situation. Cranial nerves II-XII grossly intact. Motor strength 5/5 in all extremities. Sensory grossly intact. Cerebellar exam normal. Normal gait. 06:48 Cardiovascular: Rate: tachycardic, actual rate is 108 bpm, Rhythm: regular, Pulses: Pulses are 2+ in right radial artery and left radial artery. Heart sounds: normal, normal S1and S2, no S3 or S4, no murmur, no rub, no gallop, Edema: is not appreciated, JVD: is not appreciated. Vital Signs: 06:08 BP 132 / 89; Pulse 107; Resp 20 S; Temp 99.4(O); Pulse Ox 95% on 2 lpm NC; Weight 66.22 cc3 kg (R); Height 5 ft. 5 in. (165.10 cm) (R); 06:30 BP 113 / 83; Pulse 109; Resp 20 S; Pulse Ox 96% on 2 lpm NC; cc3 07:00 BP 117 / 85; Pulse 102; Resp 18; Pulse Ox 95% ; bp 06:08 Body Mass Index 24.30 (66.22 kg, 165.10 cm) cc3 MDM: 06:08 Patient medically screened. jr8 07:28 Data reviewed: vital signs, nurses notes, lab test result(s), EKG, and as a result, I jr8 will discharge patient. Data interpreted: Pulse oximetry: on room air is 95 %. Interpretation: normal. 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 Response to treatment: the patient's symptoms have resolved after treatment. ED course: Patient monitored and without any more SVT episodes. Metoprolol given here. Patient stated that she will start back on her medication tonight as prescribed. Will f/u with cardiology. If worse will come back. Otherwise labs and EKG without concerning findings . 09/21 06:19 Order name: CBC with Diff; Complete Time: 8 09/21 06:19 Order name: Basic Metabolic Panel; Complete Time: :8 09/21 06:19 Order name: Magnesium; Complete Time: : jr8 09/21 06:19 Order name: IV; Complete Time: 06:21 8 09/21 06:19 Order name: EKG - Nurse/Tech; Complete Time: 06:19 jr8 Administered Medications: 06:30 Drug: NS 0.9% 1000 ml Route: IV; Rate: 1000 ml; Site: right antecubital; cc3 07:41 Follow up: IV Status: Completed infusion; IV Intake: 1000ml bp 06:30 Drug: Metoprolol 25 mg Route: PO; cc3 06:35 Follow up: Response: No adverse reaction cc3 Disposition: 09/22 07:38 Co-signature as Attending Physician, Patrice Birch MD I agree with the assessment and rupali plan of care. Disposition: 09/21/18 07:30 Discharged to Home. Impression: Supraventricular tachycardia. - Condition is Stable. - Discharge Instructions: Pharmaceutical Cardioversion, Paroxysmal Supraventricular Tachycardia. - Medication Reconciliation Form, Thank You Letter, Antibiotic Education, Prescription Opioid Use form. - Follow up: Private Physician; When: 2 - 3 days; Reason: Recheck today's complaints, Continuance of care, Re-evaluation by your physician. - Problem is new. - Symptoms have improved. Signatures: Dispatcher [employer] EDLA Patrice Birch MD MD cha Roszak, Josh, PA PA jr8 Mio Mays, RN RN Alyx Kwong cc3 Corrections: (The following items were deleted from the chart) 09/21 07:41 07:30 09/21/2018 07:30 Discharged to Home. Impression: Supraventricular tachycardia. bp Condition is Stable. Forms are Medication Reconciliation Form, Thank You Letter, Antibiotic Education, Prescription Opioid Use. Follow up: Private Physician; When: 2 - 3 days; Reason: Recheck today's complaints, Continuance of care, Re-evaluation by your physician. Problem is new. Symptoms have improved. jr8
--- NOTE | 2018-09-21 07:30 | ER ---
Nurse's Notes [facility] Name: Mireya Gonsalez Age: 43 yrs Sex: Female : 1975 Arrival Date: 09/21/2018 Time: 06:08 Bed 18 Private MD: Diagnosis: Supraventricular tachycardia Presentation: 09/21 06:08 Presenting complaint: EMS states: "We were toned for difficulty of breathing. When cc3 patient was hooked to ekg monitor patient was on SVT with heart rate of 210 bpm, Adenosine 12 mg IV given and rhythm was converted to Sinus Tachycardia". Transition of care: patient was not received from another setting of care. Onset of symptoms was September 21, 2018. Risk Assessment: Do you want to hurt yourself or someone else? Patient reports no desire to harm self or others. Initial Sepsis Screen: Does the patient meet any 2 criteria? No. Patient's initial sepsis screen is negative. Does the patient have a suspected source of infection? No. Patient's initial sepsis screen is negative. Care prior to arrival: Medication(s) given: Adenosine, 12 mg. 06:08 Method Of Arrival: EMS: [facility] cc3 06:08 Acuity: ARMIN 3 cc3 Triage Assessment: 06:08 General: Appears in no apparent distress. comfortable, Behavior is calm, cooperative, cc3 appropriate for age. Pain: Denies pain. EENT: No signs and/or symptoms were reported regarding the EENT system. Neuro: Level of Consciousness is awake, alert, obeys commands, Oriented to person, place, time, situation, Appropriate for age. Cardiovascular: Patient's skin is warm and dry. Respiratory: Airway is patent Respiratory effort is even, unlabored, Respiratory pattern is regular, symmetrical. GI: Abdomen is round obese. : No signs and/or symptoms were reported regarding the genitourinary system. Derm: Skin is intact, is healthy with good turgor, Skin is pink, warm \\T\\ dry. normal. Musculoskeletal: Circulation, motion, and sensation intact. Range of motion: intact in all extremities. 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 - Social history:: Smoking status: Patient uses tobacco products, smokes one pack cigarettes per day. - Ebola Screening: : No symptoms or risks identified at this time. Screenin:08 Abuse screen: Denies threats or abuse. Denies injuries from another. Nutritional cc3 screening: No deficits noted. Tuberculosis screening: No symptoms or risk factors identified. Fall Risk Ambulatory Aid- None/Bed Rest/Nurse Assist (0 pts). Gait- Normal/Bed Rest/Wheelchair (0 pts) Mental Status- Oriented to own ability (0 pts). Assessment: 06:08 General: see triage assessment. cc3 06:30 Reassessment: Patient appears in no apparent distress at this time. Patient and/or cc3 family updated on plan of care and expected duration. Pain level reassessed. Patient is alert, oriented x 3, equal unlabored respirations, skin warm/dry/pink. 07:00 Reassessment: RECD REPORT FROM ALYX MCCABE. 43YO WF P/W SOB AND SVT, CONVERTED TO ST EN bp ROUTE BY EMS WITH 12 MG ADENOSINE. PT REMAINS IN ST. LAB RESULTS PENDING. 07:40 Reassessment: PT D/C HOME AMBULATORY WITH FAMILY, DX WITH SVT. bp Vital Signs: 06:08 BP 132 / 89; Pulse 107; Resp 20 S; Temp 99.4(O); Pulse Ox 95% on 2 lpm NC; Weight 66.22 cc3 kg (R); Height 5 ft. 5 in. (165.10 cm) (R); 06:30 BP 113 / 83; Pulse 109; Resp 20 S; Pulse Ox 96% on 2 lpm NC; cc3 07:00 BP 117 / 85; Pulse 102; Resp 18; Pulse Ox 95% ; bp 06:08 Body Mass Index 24.30 (66.22 kg, 165.10 cm) cc3 ED Course: 06:08 Patient arrived in ED. cc3 06:08 Josue Pool PA is PHCP. jr8 06:08 Patrice Birch MD is Attending Physician. jr8 06:08 Patient has correct armband on for positive identification. Placed in gown. Bed in low cc3 position. Call light in reach. Side rails up X 1. radiation monitor on. Pulse ox on. NIBP on. 06:08 Arm band placed on right wrist. EKG completed in triage. Results shown to MD. cc3 06:13 Triage completed. cc3 06:23 Maintain EMS IV. Dressing intact. Good blood return noted. Site clean \\T\\ dry. Gauge \\T\\ mt site: 18 Gauge, RAC. IV is patent, is intact, with good blood return, Flushed right antecubital with 5 ml normal saline. 07:02 Mio Mays, RN is Primary Nurse. bp 07:40 No provider procedures requiring assistance completed. IV discontinued, intact, bp bleeding controlled, No redness/swelling at site. Pressure dressing applied. Administered Medications: 06:30 Drug: NS 0.9% 1000 ml Route: IV; Rate: 1000 ml; Site: right antecubital; cc3 07:41 Follow up: IV Status: Completed infusion; IV Intake: 1000ml bp 06:30 Drug: Metoprolol 25 mg Route: PO; cc3 06:35 Follow up: Response: No adverse reaction cc3 Intake: 07:41 IV: 1000ml; Total: 1000ml. bp Outcome: 07:30 Discharge ordered by . jr8 07:40 Discharged to home ambulatory. bp 07:40 Condition: stable 07:40 Discharge instructions given to patient, Instructed on discharge instructions, follow up and referral plans. Demonstrated understanding of instructions, follow-up care. 07:41 Patient left the ED. bp Signatures: Josue Pool PA PA [address] Mio Mays, ELIOT RN bp Alyx Rizvi cc3
[2018-09-21 07:49] VITALS: TEMP 99.4
[2018-09-21 07:53] VITALS: BP 117/85; O2SAT 95
--- NOTE | 2018-09-22 12:38 | EKG ---
Test Date: 2018-09-21 Test Time: 06:10:28 Learning Designer: BLANCHE MEASUREMENT RESULTS: Intervals: Rate: 109 UT: 156 QRSD: 82 QT: 326 QTc: 439 [place]: P: 83 UT: 156 QRS: 88 T: 25 INTERPRETIVE STATEMENTS: Sinus tachycardia Otherwise normal ECG Compared to ECG 06/28/2017 21:05:29 T-wave abnormality no longer present Electronically Signed On 09-22-18 12:37:37 CDT by Flaco Johnson
== END 2018-09-21 07:41 | disposition home or self-care (01) ==
LOC: ER 06:00
DX: I47.1 Supraventricular tachycardia (principal); I10 Essential (primary) hypertension; E11.9 Type 2 diabetes mellitus without complications; E03.9 Hypothyroidism, unspecified; F17.210 Nicotine dependence, cigarettes, uncomplicated; Z79.4 Long term (current) use of insulin
CPT/HCPCS: 36415; 80048; 83735; 85025; 93005; 96360; 99284; J7030

== ENCOUNTER 2020-06-15 23:44 | Emergency (ER) | payer BC ==
[2020-06-16] MEDS ORDERED: NA CHLORIDE 0.9% 1,000 ML ONE (00:20)
[2020-06-16] MEDS ORDERED: ONDANSETRON 4 MG/2 ML VIAL ONE (00:20)
[2020-06-16 00:37] LABS: Absolute Lymphocytes (CBC) 5.4 K/uL (0.7-4.9); Basophils % 0.5 % (0-1.3); Hematocrit 41.2 % (36.0-45.0); Lymphocytes % 34.2 % (15.3-44.8); MPV 8.3 fL (7.6-11.3); RBC Red Blood Cell Count 4.93 M/uL (3.86-4.86)
[2020-06-16 00:47] LABS: BUN Blood Urea Nitrogen 7 mg/dL (7-18); Bicarbonate 28 mmol/L (21-32); Glucose Level 206 mg/dL (74-106); Potassium 4.3 mmol/L (3.5-5.1); Sodium Level 141 mmol/L (136-145)
[2020-06-16 00:48] LABS: ALT/SGPT 29 U/L (12-78); AST/SGOT 37 U/L (15-37); Albumin 3.8 g/dL (3.4-5.0); Alkaline Phosphatase 85 U/L (45-117); Bilirubin Direct < 0.1 mg/dL (0-0.2); Bilirubin Total 0.5 mg/dL (0.2-1.0); Lipase 291 U/L (73-393); Protein, Total 8.2 g/dL (6.4-8.2)
[2020-06-16] MEDS ORDERED: MAGNES/ALUMIN/SIMET 30ML UCUP ONE (01:29)
[2020-06-16] MEDS ORDERED: LIDOCAINE VISCOUS 2% SOLN 15 ML UDC ONE (01:29)
--- NOTE | 2020-06-16 02:09 | EDPHYS ---
Physician Documentation [facility] Name: Mireya Gonsalez Age: 45 yrs Sex: Female : 1975 Arrival Date: 06/15/2020 Time: 23:47 Bed 7 Private MD: ED Physician Sunil Wray HPI: 06/15 23:58 This 45 yrs old Female presents to ER via Unassigned with complaints of tw4 Vomiting. 23:58 The patient presents to the emergency department with nausea, vomiting, 10 times since tw4 the onset of symptoms. Onset: The symptoms/episode began/occurred 2 day(s) ago. Possible causes: antibiotics, macrolide, Zithromax. The symptoms are aggravated by nothing. The symptoms are alleviated by nothing. Severity of symptoms: At their worst the symptoms were moderate in the emergency department the symptoms are unchanged. The patient has not experienced similar symptoms in the past. 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 em Historical: - Allergies: 06/15 23:59 No Known Allergies; ea 06/16 00:00 No Known Allergies; em - Home Meds: 06/15 23:59 "Insulin shot every saturday" [Active]; Celebrex Oral [Active]; gabapentin Oral [Active]; ea levothyroxine 88 mcg tab 1 tab once daily [Active]; metformin 500 mg Oral tab 1 tab 2 times per day [Active]; Metoprolol Tartrate Oral [Active]; Tylenol #4 Oral [Active]; - PMHx: 23:59 SVT; neuropathy; Hypothyroidism; Hypertension; Diabetes - NIDDM; chronic back pain; ea 06/16 00:00 Hypothyroidism; svt; Diabetes - NIDDM; Chronic pain; em - PSHx: 06/15 23:59 ; Hernia repair; left shoulder surgery; Cholecystectomy; ea 06/16 00:00 Cholecystectomy; left shoulder surgery; ; Hernia repair; em - Immunization history:: Client reports receiving the 1st dose of the Covid vaccine, June 16, 2020. - Social history:: Smoking status: Patient reports the use of cigarette tobacco products, smokes one pack cigarettes per day. ROS: 06/15 23:58 Constitutional: Negative for fever, chills, and weight loss, Eyes: Negative for injury, tw4 pain, redness, and discharge, ENT: Negative for injury, pain, and discharge, Neck: Negative for injury, pain, and swelling, Back: Negative for injury and pain, MS/Extremity: Negative for injury and deformity, Skin: Negative for injury, rash, and discoloration, Neuro: Negative for headache, weakness, numbness, tingling, and seizure. Cardiovascular: Positive for chest pain, Negative for edema, orthopnea, palpitations, paroxysmal nocturnal dyspnea. Abdomen/GI: Positive for abdominal pain, nausea and vomiting, nausea, vomiting, and diarrhea, nausea, vomiting, diarrhea, abdominal cramps, Negative for constipation, anorexia, dysphagia, hematemesis, black/tarry stool, rectal pain, rectal bleeding, bowel incontinence. Exam: 23:58 Constitutional: This is a well developed, well nourished patient who is awake, alert, tw4 and in no acute distress. Head/Face: Normocephalic, atraumatic. Chest/axilla: Normal chest wall appearance and motion. Nontender with no deformity. No lesions are appreciated. Cardiovascular: Regular rate and rhythm with a normal S1 and S2. No gallops, murmurs, or rubs. Normal PMI, no JVD. No pulse deficits. Respiratory: Lungs have equal breath sounds bilaterally, clear to auscultation and percussion. No rales, rhonchi or wheezes noted. No increased work of breathing, no retractions or nasal flaring. Back: No spinal tenderness. No costovertebral tenderness. Full range of motion. Skin: Warm, dry with normal turgor. Normal color with no rashes, no lesions, and no evidence of cellulitis. MS/ Extremity: Pulses equal, no cyanosis. Neurovascular intact. Full, normal range of motion. Neuro: Awake and alert, GCS 15, oriented to person, place, time, and situation. Cranial nerves II-XII grossly intact. Motor strength 5/5 in all extremities. Sensory grossly intact. Cerebellar exam normal. Normal gait. Psych: Awake, alert, with orientation to person, place and time. Behavior, mood, and affect are within normal limits. 23:58 Abdomen/GI: Inspection: abdomen appears normal, Bowel sounds: diminished, Palpation: moderate abdominal tenderness, in the epigastric area. Vital Signs: 23:57 BP 110 / 87; Pulse 117; Resp 20; Pulse Ox 96% on R/A; Weight 102.97 kg; Height 5 ft. 5 em in. (165.10 cm); Pain 4/10; 23:57 Temp 99; rr5 06/16 00:00 BP 110 / 87; Pulse 108; Resp 18; Pulse Ox 98% ; ea 01:00 BP 126 / 70; Pulse 115; Resp 19; Pulse Ox 99% ; rr5 02:17 BP 105 / 70; Pulse 105; Resp 17; Pulse Ox 98% ; rr5 03 23:57 Body Mass Index 37.77 (102.97 kg, 165.10 cm) em MDM: 06/15 23:51 Patient medically screened. 06/15 23:57 Order name: Basic Metabolic Panel; Complete Time: 01:44 06/16 01:44 Interpretation: Normal except: GLUC 206; GFR 79. 06/15 23:57 Order name: CBC with Diff; Complete Time: 01:44 06/16 01:44 Interpretation: Normal except: WBC 15.70; RBC 4.93; NEUT A 9.6. 06/15 23:57 Order name: Hepatic Function; Complete Time: 01:44 06/16 01:44 Interpretation: Normal except: A/G 0.9; GLOB 4.4. 06/15 23:57 Order name: Lipase; Complete Time: 01:44 06/16 01:45 Interpretation: Within normal limits: LIP 291. 06/15 23:57 Order name: IV Saline Lock; Complete Time: 00:10 06/15 23:57 Order name: Labs collected and sent; Complete Time: 00:10 ea 06/16 00:14 Order name: EKG - Nurse/Tech; Complete Time: 00:15 rr5 Administered Medications: 06/16 00:06 Drug: Zofran (Ondansetron) 4 mg Route: IVP; Site: right antecubital; ea 01:00 Follow up: Response: No adverse reaction rr5 00:06 Drug: NS 0.9% 1000 ml Route: IV; Rate: 1 bolus; Site: right antecubital; ea 01:10 Follow up: Response: No adverse reaction; IV Status: Completed infusion; IV Intake: rr5 1000ml 01:00 Drug: GI Cocktail without - (Maalox Suspension 30 ml, Lidocaine Liquid 2 % 15 rr5 ml) Route: PO; 02:16 Follow up: Response: No adverse reaction; Pain is decreased rr5 02:15 Drug: ProTONIX 40 mg Route: IVP; Site: right forearm; rr5 02:18 Follow up: Response: No adverse reaction; Medication administered at discharge. rr5 Disposition: 06/16/20 02:08 Discharged to Home. Impression: Gastritis, unspecified, without bleeding, Nausea and vomiting. - Condition is Stable. - Discharge Instructions: Gastritis, Adult. - Prescriptions for Bentyl 20 mg Oral Tablet - take 1 tablet by ORAL route every 6 hours As needed; 20 tablet. Protonix 40 mg Oral Tablet - take 1 tablet by ORAL route once daily; 30 tablet. Zofran 4 mg Oral Tablet - take 1 tablet by ORAL route every 12 hours As needed; 20 tablet. - Work release form, Medication Reconciliation Form, Thank You Letter, Antibiotic Education, Prescription Opioid Use form. - Follow up: Private Physician; When: Upon discharge from the Emergency Department; Reason: Recheck today's complaints, Continuance of care, Re-evaluation by your physician. - Problem is new. - Symptoms have improved. Signatures: Dispatcher [employer] EDMinh Loja, RN RN Edith Jones RN RN Sunil Benton MD MD tw4 Brian Barroso RN RN rr5 Corrections: (The following items were deleted from the chart) 02:18 02:08 06/16/2020 02:08 Discharged to Home. Impression: Gastritis, unspecified, without rr5 bleeding; Nausea and vomiting. Condition is Stable. Forms are Medication Reconciliation Form, Thank You Letter, Antibiotic Education, Prescription Opioid Use. Follow up: Private Physician; When: Upon discharge from the Emergency Department; Reason: Recheck today's complaints, Continuance of care, Re-evaluation by your physician. Problem is new. Symptoms have improved. tw4
--- NOTE | 2020-06-16 02:09 | ER ---
Nurse's Notes [facility] Name: Mireya Gonsalez Age: 45 yrs Sex: Female : 1975 Arrival Date: 06/15/2020 Time: 23:47 Bed 7 Private MD: Diagnosis: Gastritis, unspecified, without bleeding;Nausea and vomiting Presentation: 06/15 23:57 Chief complaint: Patient states: N/V and abdominal pain for 2 days, also reports chest em pain when at her cardiology today, was wearing Holter monitor, hx of SVT, was also started on Z-pack/prednisone, denies fever, covid swabbed today and was negative. Coronavirus screen: Client denies travel out of the [place] in the last 14 days. The client reports previous COVID testing was negative. Date of collection: June 15, 2020. Ebola Screen: Patient negative for fever greater than or equal to 101.5 degrees Fahrenheit, and additional compatible Ebola Virus Disease symptoms Patient denies exposure to infectious person. Patient denies travel to an Ebola-affected area in the 21 days before illness onset. No symptoms or risks identified at this time. Initial Sepsis Screen: Does the patient meet any 2 criteria? HR > 90 bpm. No. Patient's initial sepsis screen is negative. Does the patient have a suspected source of infection? No. Patient's initial sepsis screen is negative. Risk Assessment: Do you want to hurt yourself or someone else? Patient reports no desire to harm self or others. Onset of symptoms was June 15, 2020. 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: 06/16 00:00 LMP N/A - Post-menopause em Historical: - Allergies: 06/15 23:59 No Known Allergies; ea 06/16 00:00 No Known Allergies; em - Home Meds: 06/15 23:59 "Insulin shot every saturday" [Active]; Celebrex Oral [Active]; gabapentin Oral [Active]; ea levothyroxine 88 mcg tab 1 tab once daily [Active]; metformin 500 mg Oral tab 1 tab 2 times per day [Active]; Metoprolol Tartrate Oral [Active]; Tylenol #4 Oral [Active]; - PMHx: 23:59 SVT; neuropathy; Hypothyroidism; Hypertension; Diabetes - NIDDM; chronic back pain; ea 06/16 00:00 Hypothyroidism; svt; Diabetes - NIDDM; Chronic pain; em - PSHx: 06/15 23:59 ; Hernia repair; left shoulder surgery; Cholecystectomy; ea 06/16 00:00 Cholecystectomy; left shoulder surgery; ; Hernia repair; em - Immunization history:: Client reports receiving the 1st dose of the Covid vaccine, June 16, 2020. - Social history:: Smoking status: Patient reports the use of cigarette tobacco products, smokes one pack cigarettes per day. Screenin/10 23:56 Abuse screen: Denies threats or abuse. Nutritional screening: No deficits noted. ea Tuberculosis screening: No symptoms or risk factors identified. Fall Risk None identified. Assessment: 06/16 00:10 General: Appears in no apparent distress. uncomfortable, Behavior is calm, cooperative, rr5 agitated. Pain: Complains of pain in abdomen and epigastric area Pain currently is 3 out of 10 on a pain scale. Quality of pain is described as aching, Pain began gradually, Is intermittent. Neuro: Level of Consciousness is awake, alert, obeys commands, Oriented to person, place, time, situation. Cardiovascular: Capillary refill < 3 seconds Patient's skin is warm and dry. Respiratory: Airway is patent Respiratory effort is even, unlabored, Respiratory pattern is regular, symmetrical. GI: Abdomen is round obese, Reports upper abdominal pain, nausea, vomiting. : No signs and/or symptoms were reported regarding the genitourinary system. EENT: No signs and/or symptoms were reported regarding the EENT system. Derm: Skin is intact, is healthy with good turgor, Skin temperature is warm. Musculoskeletal: Capillary refill is > 3 seconds. 01:00 Reassessment: Patient appears in no apparent distress at this time. Patient is alert, rr5 oriented x 3, equal unlabored respirations, skin warm/dry/pink. complaints of abdominal pain provider informed with verbal order made and carried out. 02:15 Reassessment: Patient appears in no apparent distress at this time. Patient is alert, rr5 oriented x 3, equal unlabored respirations, skin warm/dry/pink. discharge instruction given and explained without complaints made Patient states symptoms have improved. Vital Signs: 06/15 23:57 BP 110 / 87; Pulse 117; Resp 20; Pulse Ox 96% on R/A; Weight 102.97 kg; Height 5 ft. 5 em in. (165.10 cm); Pain 4/10; 23:57 Temp 99; rr5 06/16 00:00 BP 110 / 87; Pulse 108; Resp 18; Pulse Ox 98% ; ea 01:00 BP 126 / 70; Pulse 115; Resp 19; Pulse Ox 99% ; rr5 02:17 BP 105 / 70; Pulse 105; Resp 17; Pulse Ox 98% ; rr5 03 23:57 Body Mass Index 37.77 (102.97 kg, 165.10 cm) em ED Course: 06/15 23:47 Patient arrived in ED. am4 23:50 Sunil Wray MD is Attending Physician. tw4 23:56 Arm band placed on right wrist. Patient placed in an exam room, on a stretcher, on ea pulse oximetry. 23:57 Patient has correct armband on for positive identification. Placed in gown. Bed in low ea position. Call light in reach. project controls specialist on. Pulse ox on. NIBP on. 23:59 Triage completed. em 06/16 00:05 Inserted saline lock: 20 gauge in right forearm, using aseptic technique. Blood rr5 collected. 00:06 Brian Barroso RN is Primary Nurse. rr5 00:10 EKG done, by ED staff, reviewed by Sunil Wray MD. rr5 02:16 No provider procedures requiring assistance completed. IV discontinued, intact, rr5 bleeding controlled, No redness/swelling at site. Pressure dressing applied. Administered Medications: 00:06 Drug: Zofran (Ondansetron) 4 mg Route: IVP; Site: right antecubital; ea 01:00 Follow up: Response: No adverse reaction rr5 00:06 Drug: NS 0.9% 1000 ml Route: IV; Rate: 1 bolus; Site: right antecubital; ea 01:10 Follow up: Response: No adverse reaction; IV Status: Completed infusion; IV Intake: rr5 1000ml 01:00 Drug: GI Cocktail without - (Maalox Suspension 30 ml, Lidocaine Liquid 2 % 15 rr5 ml) Route: PO; 02:16 Follow up: Response: No adverse reaction; Pain is decreased rr5 02:15 Drug: ProTONIX 40 mg Route: IVP; Site: right forearm; rr5 02:18 Follow up: Response: No adverse reaction; Medication administered at discharge. rr5 Intake: 01:10 IV: 1000ml; Total: 1000ml. rr5 Outcome: 02:08 Discharge ordered by . tw4 02:16 Discharged to home ambulatory. rr5 02:16 Condition: stable 02:16 Discharge instructions given to patient, Instructed on discharge instructions, follow up and referral plans. medication usage, Demonstrated understanding of instructions, follow-up care, medications, Prescriptions given X 3. 02:18 Patient left the ED. rr5 Signatures: Minh Bruner, RN RN Edith Jones RN Sunil Mai ea, MD MD tw4 Brian Barroso RN RN rr5 Tessie [place] [facility]
[2020-06-16] MEDS ORDERED: PANTOPRAZOLE 40 MG INJ ONE (02:30)
[2020-06-16 03:49] VITALS: BP 110/87; TEMP 99; O2SAT 96
== END 2020-06-16 02:18 | disposition home or self-care (01) ==
LOC: ER 23:44
DX: K29.70 Gastritis, unspecified, without bleeding (principal); I10 Essential (primary) hypertension; E11.9 Type 2 diabetes mellitus without complications; E03.9 Hypothyroidism, unspecified; F17.210 Nicotine dependence, cigarettes, uncomplicated; Z79.4 Long term (current) use of insulin
CPT/HCPCS: 93005; 85025; 80048; 36415; 80076; 83690; C9113; J7030; J2405; 99284

== ENCOUNTER 2020-07-15 06:45 | Day surgery (SDC) | payer BC ==
[2020-07-15] MEDS ORDERED: HYDROMORPHONE HCL 0.5 MG/0.5 ML INJ IV ONE (07:30)
[2020-07-15] MEDS ORDERED: NA CHLORIDE 0.9% 1,000 ML ONE (07:30)
[2020-07-15] MEDS ORDERED: GABAPENTIN 300 MG CAP PO ONE ×2 (07:30→08:00)
[2020-07-15] MEDS ORDERED: PROMETHAZINE INJ 25 MG/ML AMP IV ONE (07:30)
[2020-07-15] MEDS ORDERED: PROMETHAZINE INJ 25 MG/ML AMP ONE (07:47)
[2020-07-15] MEDS ORDERED: HYDROMORPHONE HCL 1 MG/ML INJ ONE (07:51)
[2020-07-15] MEDS ORDERED: propofoL 200 MG/20 ML VIAL IV ONE (09:15)
[2020-07-15] MEDS ORDERED: MIDAZOLAM HCL 2 MG/2 ML INJ ONE (09:15)
[2020-07-15] MEDS ORDERED: LIDOCAINE 2% MPF 5 ML VIAL ONE (09:16)
--- NOTE | 2020-07-15 09:47 | P.OP ---
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 The lesion at the tip of the uvula was grasped with forceps and the base of the uvula injected with 0.5 ml of 0.5% marcaine. The protected spatula tip bovie was used to excise through the mucosa and muscle of the uvula to remove the lesion with a margin in case of unexpected pathology findings. Very minimal bleeding was noted on the right mucosal edge and was cauterized. The area was reinspected and appeared hemostatic. The procedure was concluded and inhalational mask reapplied by the CURRICULUM DEVELOPMENT COORDINATOR. The patient was awoken and transported to the PACU without incident. Complications: None Implants: none Fluids & blood products: crystalloid 400ml Transferred to: Recovery Room Condition: Good
[2020-07-15 11:02] VITALS: BP 134/91; TEMP 97.1; O2SAT 93
== END 2020-07-15 10:52 | disposition home or self-care (01) ==
LOC: OR 06:45
PROVIDERS: ATTEND Otolaryngology
PROC: 0CTNXZZ Resection of Uvula, External Approach (ICD-10-PCS; principal; 2020-07-15 08:30)
DX: D10.5 Benign neoplasm of other parts of oropharynx (principal); E03.8 Other specified hypothyroidism; Z72.0 Tobacco use; R03.0 Elevated blood-pressure reading, without diagnosis of hypertension
CPT/HCPCS: 82947; 88305; 42140; J2704; J2550 ×2; J2250; J1170 ×2; J7030

== ENCOUNTER → 2023-04-26 | Emergency (ER) | payer BC ==
[~2023-04-26] MED LIST: MAGNESIUM SULFATE 1 gm IVPB 1 GM/100 ML BAG IV ONE; NA CHLORIDE 0.9% 500 ML ONE
[2023-04-26 10:33] LABS: Absolute Lymphocytes (CBC) 6.2 K/uL (0.7-4.9); Hematocrit 39.2 % (36.0-45.0); Lymphocytes % 50.2 % (15.3-44.8); MCV 86.5 fL (80-100); Platelets 297 thou/uL (152-406); RBC Red Blood Cell Count 4.53 M/uL (3.86-4.86)
[2023-04-26 10:53] LABS: Potassium 3.5 mEq/L (3.5-5.1)
--- NOTE | 2023-04-26 12:15 | RAD REPORT ---
EXAM DESCRIPTION: [place] Single View04/26/2023 10:40 am CLINICAL HISTORY: Palpitations COMPARISON: 2021 FINDINGS: 8 millimeter opacity left lung base Remainder lungs appear clear of acute infiltrate. Heart is normal size IMPRESSION: 8 millimeter opacity left lung base. This may represent confluence of ribs and vessels o r a pulmonary nodule/infiltrate. It is recommended that the patient have PA and lateral chest series for further evaluation
--- NOTE | 2023-04-26 12:18 | EDPHYS ---
Physician Documentation [facility] Name: Mireya Gonsalez Age: 48 yrs Sex: Female : 1975 Arrival Date: 04/26/2023 Time: 10:08 Bed 4 Private MD: ED Physician Po Damico HPI: 04/26 10:45 This 48 yrs old Female presents to ER via EMS with complaints of SVT. rn 10:45 The patient presents with a history of heart racing. Context: The symptoms occur at rn rest. Onset: The symptoms/episode began/occurred just prior to arrival. Duration: The patient or guardian reports a single episode. Modifying factors: The symptoms are aggravated by nothing. The symptoms are alleviated by Adenosine administration by EMS. Associated signs and symptoms: Pertinent negatives: chest pain, fever, syncope. Severity of symptoms: At their worst the symptoms were moderate in the emergency department the symptoms have resolved. The patient has experienced similar episodes in the past. Patient reports palpitations that started when she got home from work and was taking a bath. Patient reports heart racing and warmth to chest. Has a history of SVT, usually resolves with adenosine. EMS administered 1 dose of adenosine and now symptoms have resolved. No chest pain or shortness of breath. No further palpitations. Patient states stopped taking her metoprolol a week ago because she had not had any issues with SVT lately.. Historical: - Allergies: 10:15 No Known Allergies; ap3 - PMHx: 10:15 chronic back pain; Chronic pain; Diabetes - NIDDM; Diabetes - NIDDM; Hypertension; ap3 Hypothyroidism; Hypothyroidism; neuropathy; SVT; SVT; - Immunization history:: Client reports receiving the 2nd dose of the Covid vaccine, Flu vaccine is not up to date. - Social history:: Smoking status: Patient reports the use of cigarette tobacco products, smokes 1.5 packs per day. - Family history:: not pertinent. - Hospitalizations: : No recent hospitalization is reported. ROS: 10:45 Constitutional: Negative for fever, chills, and weight loss, Cardiovascular: Positive rn for palpitations and tachycardia Respiratory: Negative for shortness of breath, cough, wheezing, and pleuritic chest pain, Abdomen/GI: Negative for abdominal pain, nausea, vomiting, diarrhea, and constipation, MS/Extremity: Negative for injury and deformity, Skin: Negative for injury, rash, and discoloration, Neuro: Negative for headache, weakness, numbness, tingling, and seizure, Exam: 10:45 Constitutional: This is a well developed, well nourished patient who is awake, alert, rn and in no acute distress. Head/Face: Normocephalic, atraumatic. Cardiovascular: Tachycardic, regular. Respiratory: Speaking full sentences, unlabored. No increased work of breathing, no retractions or nasal flaring. Abdomen/GI: Soft, nontender Skin: Warm, dry with normal turgor. Normal color with no rashes, no lesions, and no evidence of cellulitis. MS/ Extremity: Pulses equal, no cyanosis. Neurovascular intact. Full, normal range of motion. Equal circumference. Neuro: Awake and alert, GCS 15 13:12 ECG was reviewed by the Attending Physician. rn Vital Signs: 10:11 BP 135 / 89; Pulse 111; Resp 15; Temp 98.3; Pulse Ox 95% on R/A; Weight 104.33 kg; ap3 Height 5 ft. 5 in. ; 11:32 BP 129 / 84; Pulse 105; Pulse Ox 95% on R/A; ap3 10:11 Body Mass Index 38.27 (104.33 kg, 165.1 cm) ap3 MDM: 10:10 Patient medically screened. rn 12:17 Differential diagnosis: arrythmia, dehydration, stress disorder. Data reviewed: vital rn signs, nurses notes, lab test result(s), EKG, radiologic studies, plain films, and as a result, I will discharge patient. Counseling: I had a detailed discussion with the patient and/or guardian regarding the historical points, exam findings, and any diagnostic results supporting the discharge/admit diagnosis, lab results, radiology results, the need for outpatient follow up, to return to the emergency department if symptoms worsen or persist or if there are any questions or concerns that arise at home. Response to treatment: the patient's symptoms have resolved after treatment, and as a result, I will discharge patient. Special discussion: I discussed with the patient/guardian in detail that at this point there is no indication for admission to the hospital. It is understood, however, that if the symptoms persist or worsen the patient needs to return immediately for re-evaluation. Based on the history and exam findings, there is no indication for further emergent testing or inpatient evaluation. I discussed with the patient/guardian the need to see the temporary staff accountant for further evaluation of the symptoms. ED course: No acute findings and workup here. SVT resolved after adenosine administered by EMS. Patient needs to get back on her metoprolol. Left opacity on chest x-ray single view, patient without any respiratory symptoms, states needs to leave, recommend x-ray outpatient, 2 view. Return precautions given and understands and needs to take her metoprolol and follow up with cardiology. 04/26 10:11 Order name: Basic Metabolic Panel; Complete Time: 10:54 rn 04/26 10:11 Order name: CBC with Diff; Complete Time: : rn 04/26 10:11 Order name: Troponin HS; Complete Time: rn 04/26 10:11 Order name: XRAY Chest (1 view); Complete Time: 12:16 rn 04/26 10:11 Order name: EKG; Complete Time: 10: rn 04/26 10:11 Order name: Cardiac monitoring; Complete Time: : rn 04/26 10:11 Order name: EKG - Nurse/Tech; Complete Time: 10: rn 04/26 10:11 Order name: IV Saline Lock; Complete Time: : rn 04/26 10:11 Order name: Labs collected and sent; Complete Time: 10: rn 04/26 10:11 Order name: O2 Per Protocol; Complete Time: 10: rn 04/26 10:11 Order name: O2 Sat Monitoring; Complete Time: 10:16 rn EC:12 Rate is 111 beats/min. Rhythm is regular. QRS [place] is Normal. SD interval is normal. rn QRS interval is normal. QT interval is normal. No Q waves. T waves are Normal. No ST changes noted. Clinical impression: Sinus tachycardia. Interpreted by me. Reviewed by me. Administered Medications: 10:29 Drug: Magnesium Sulfate IVPB 1 grams IVPB once over 1 hrs Route: IVPB; Infused Over: 1 ap3 hrs; Site: right antecubital; 11:31 Follow up: IV Status: Completed infusion; IV Intake: 100ml ap3 10:29 Drug: NS 0.9% IV 500 ml IV at bolus once Route: IV; Rate: bolus; Site: right ap3 antecubital; 11:31 Follow up: IV Status: Completed infusion; IV Intake: 500ml ap3 Disposition Summary: 04/26/23 12:18 Discharge Ordered Notes: Location: Home rn Problem: new rn Symptoms: have improved rn Condition: Stable rn Diagnosis - Supraventricular tachycardia rn Followup: rn - With: Private Physician - When: As needed - Reason: Recheck today's complaints, Re-evaluation by your physician Discharge Instructions: - Discharge Summary Sheet rn - Supraventricular Tachycardia, Adult rn Forms: - Medication Reconciliation Form rn - Thank You Letter rn - Antibiotic furnace installer - Prescription Opioid Use rn - Patient Portal Instructions rn - Leadership Thank You Letter rn - Work release form eb Signatures: Dispatcher [employer] EDPo You MD MD rn Prokisch, Amanda, RN RN ap3 Corrections: (The following items were deleted from the chart) 10:47 10:45 Patient reports palpitations that started when she got home from work and was rn taking a bath. Patient reports heart racing and warmth to chest. Has a history of SVT, usually resolves with adenosine. EMS administered 1 dose of adenosine and now symptoms have resolved. No chest pain or shortness of breath. No further palpitations. Patient states stopped taking her metoprolol a week ago.. rn
--- NOTE | 2023-04-26 12:18 | ER ---
Nurse's Notes [facility] Name: Mireya Gonsalez Age: 48 yrs Sex: Female : 1975 Arrival Date: 04/26/2023 Time: 10:08 Bed 4 Private MD: Diagnosis: Supraventricular tachycardia Presentation: 04/26 10:11 Chief complaint: Patient states: she was taking a hot bath when she felt like her heart ap3 was racing, EMS arrived and the patient had a heart rate of 203, and is reported to be in SVT. EMS established a 20g IV to the right AC and administered 12mg of Adenosine. Patients heart rate came down to the 110's after the medications. Coronavirus screen: At this time, the client does not indicate any symptoms associated with coronavirus-19. Ebola Screen: No symptoms or risks identified at this time. Initial Sepsis Screen: Does the patient meet any 2 criteria? HR > 90 bpm. Does the patient have a suspected source of infection? No. Patient's initial sepsis screen is negative. Risk Assessment: Do you want to hurt yourself or someone else? Patient reports no desire to harm self or others. Onset of symptoms was April 26, 2023. Care prior to arrival: Medication(s) given: Adenosine, 12 mg, x 1, IV initiated. 20 GA, in the right antecubital area. 10:11 Method Of Arrival: EMS: [facility] ap3 10:11 Acuity: ARMIN 2 ap3 Triage Assessment: 10:16 General: Appears in no apparent distress. Behavior is calm, cooperative, appropriate ap3 for age. Pain: Denies pain. Neuro: Level of Consciousness is awake, alert, obeys commands, Oriented to person, place, time, situation. Cardiovascular: Patient's skin is warm and dry. Respiratory: Airway is patent Respiratory effort is even, unlabored, Respiratory pattern is regular, symmetrical. Historical: - Allergies: 10:15 No Known Allergies; ap3 - PMHx: 10:15 chronic back pain; Chronic pain; Diabetes - NIDDM; Diabetes - NIDDM; Hypertension; ap3 Hypothyroidism; Hypothyroidism; neuropathy; SVT; SVT; - Immunization history:: Client reports receiving the 2nd dose of the Covid vaccine, Flu vaccine is not up to date. - Social history:: Smoking status: Patient reports the use of cigarette tobacco products, smokes 1.5 packs per day. - Family history:: not pertinent. - Hospitalizations: : No recent hospitalization is reported. Screenin:16 [facility] ED Fall Risk Assessment (Adult) History of falling in the last 3 months, ap3 including since admission No falls in past 3 months (0 pts). Abuse screen: Denies threats or abuse. Nutritional screening: No deficits noted. Tuberculosis screening: No symptoms or risk factors identified. Assessment: 11:37 Reassessment: No changes from previously documented assessment. Patient and/or family ap3 updated on plan of care and expected duration. Pain level reassessed. Patient states feeling better. Patient states symptoms have improved. Vital Signs: 10:11 BP 135 / 89; Pulse 111; Resp 15; Temp 98.3; Pulse Ox 95% on R/A; Weight 104.33 kg; ap3 Height 5 ft. 5 in. ; 11:32 BP 129 / 84; Pulse 105; Pulse Ox 95% on R/A; ap3 10:11 Body Mass Index 38.27 (104.33 kg, 165.1 cm) ap3 ED Course: 10:10 Patient arrived in ED. rn 10:10 Po Damico MD is Attending Physician. rn 10:11 Nicki Connors RN is Primary Nurse. ap3 10:15 Triage completed. ap3 10:16 Arm band placed on left wrist. ap3 10:16 Patient has correct armband on for positive identification. Bed in low position. Call ap3 light in reach. Side rails up X2. Adult w/ patient. site monitor on. Pulse ox on. NIBP on. 10:27 EKG done, by ED staff, reviewed by Po Damico MD. em1 10:42 XRAY Chest (1 view) In Process Unspecified. EDMS Administered Medications: 10:29 Drug: Magnesium Sulfate IVPB 1 grams IVPB once over 1 hrs Route: IVPB; Infused Over: 1 ap3 hrs; Site: right antecubital; 11:31 Follow up: IV Status: Completed infusion; IV Intake: 100ml ap3 10:29 Drug: NS 0.9% IV 500 ml IV at bolus once Route: IV; Rate: bolus; Site: right ap3 antecubital; 11:31 Follow up: IV Status: Completed infusion; IV Intake: 500ml ap3 Intake: 11:31 IV: 100ml; Total: 100ml. ap3 11:31 IV: 500ml; Total: 600ml. ap3 Outcome: 12:18 Discharge ordered by . rn 12:33 Patient left the ED. hb Signatures: Dispatcher [employer] Po Garcia MD MD rn Martinez, Eric em1 Baxter, Heather, RN RN Nicki Connors RN RN ap3
[2023-04-26 14:40] VITALS: BP 129/84; TEMP 98.3; O2SAT 95
--- NOTE | 2023-04-29 17:02 | EKG ---
Test Date: 2023-04-26 Test Time: 10:26:02 Spare Hand: CHRISTELLE MEASUREMENT RESULTS: Intervals: Rate: 111 TN: 160 QRSD: 86 QT: 320 QTc: 435 [place]: P: 74 TN: 160 QRS: 60 T: 39 INTERPRETIVE STATEMENTS: Sinus tachycardia Otherwise normal ECG Compared to ECG 06/15/2020 23:56:40 Sinus rhythm no longer present Electronically Signed On 04-29-23 16:54:29 CERTIFIED PEST CONTROL TECHNICIAN by Kirby Jimenez
== END ==
LOC: ER 10:08
DX: I47.10 Supraventricular tachycardia, unspecified (principal); I10 Essential (primary) hypertension; E11.40 Type 2 diabetes mellitus with diabetic neuropathy, unspecified; E03.9 Hypothyroidism, unspecified; G89.29 Other chronic pain; M54.9 Dorsalgia, unspecified; F17.210 Nicotine dependence, cigarettes, uncomplicated
CPT/HCPCS: 96365; 93005; 85025; 80048; 36415; 84484; 71045; 99284; J3475; J7040